=== PATIENT | male | born 1935 | race Caucasian/White ===

== ENCOUNTER 2018-02-24 09:33 | Emergency (ER) | payer OTHER, SELFPAY ==
[2018-02-24 09:34] VITALS: BP 154/75; PULSE 69; RESP 17; TEMP 36.6; O2SAT 97; BMI 21.9
--- NOTE | 2018-02-24 10:11 | ED.VISSUMM ---
- ER Visit Summary Date of Service: 02/24/18 Chief Complaint: [] Right ear plugged dizzy History of Present Illness: The patient is a 82 M [] patient reports that the other day he noticed that his right ear was plugged where he could not hear and since then he developed a sense of dizziness with a buzzing sensation to the right ear symptoms persisted today and he came in he has no fever no cough no runny nose, no headache no change in vision no numbness weakness or paresthesias no neurologic abnormalities the family reports at times his gait seems slightly unsteady and he indicates that because his ear keeps passing, he has no history of AR or stroke his diabetes is well-controlled with blood sugars running around 100, he indicates he has been feeling fine his review of systems otherwise negative Physical Examination: [] 154/56, General, no distress resting comfortably HEENT is generally unremarkable but he does have a wax impaction to the right ear the TM is partially seen and appears intact, the left ear TM is unremarkable and canal he has no nystagmus his speech is clear and easy to understand cranial nerves are normal The neck is supple no adenopathy Cardiovascular, regular rate and rhythm Lungs, clear bilateral Abdomen, soft nontender Extremities, no clubbing cyanosis or edema Neurologic, awake alert answering questions appropriately moving all 4 extremities no cerebellar findings his gait is steady and strong here he indicates he feels fine his NIH is 0 Test Results: [] Emergency Department Course and Treatment: [] Long conversation with the patient his family I explained given his age and his diabetes that he could have a wax impaction and some other occult condition causing the spinning sensation or dizziness recommended screening labs EKG head CT etc. but he declined that saying he simply wanted that wax removed from his ear his [id number] was in the room with him he clearly understood all of the above concerns that I had verbalized them back to me, he did not wish to have an ED evaluation, we did irrigate his ear took out the wax he is feeling fine he wants to go home to follow-up with his doctors he will be given Tobrex ear solution and he will follow-up and return for change in symptoms Treatment Plan: [] Disposition: [] Home stable Impression: [] Right sided cerumen impaction This note was generated with [employer] software. It may contain incorrect words, spelling, and punctuation that were not noted in review of the chart prior to signing ED Disposition - Plan for ED Patient: Chief Complaint: Dizziness Referrals: Hao Marie MD [Primary Care Provider] -
--- NOTE | 2018-02-24 10:14 | ED.DCSUM_ITS ---
- ER Visit Summary Date of Service: 02/24/18 Chief Complaint: [] Right ear plugged dizzy History of Present Illness: The patient is a 82 M [] patient reports that the other day he noticed that his right ear was plugged where he could not hear and since then he developed a sense of dizziness with a buzzing sensation to the right ear symptoms persisted today and he came in he has no fever no cough no runny nose, no headache no change in vision no numbness weakness or paresthesias no neurologic abnormalities the family reports at times his gait seems slightly unsteady and he indicates that because his ear keeps passing, he has no history of NC or stroke his diabetes is well-controlled with blood sugars running around 100, he indicates he has been feeling fine his review of systems otherwise negative Physical Examination: [] 154/56, General, no distress resting comfortably HEENT is generally unremarkable but he does have a wax impaction to the right ear the TM is partially seen and appears intact, the left ear TM is unremarkable and canal he has no nystagmus his speech is clear and easy to understand cranial nerves are normal The neck is supple no adenopathy Cardiovascular, regular rate and rhythm Lungs, clear bilateral Abdomen, soft nontender Extremities, no clubbing cyanosis or edema Neurologic, awake alert answering questions appropriately moving all 4 extremities no cerebellar findings his gait is steady and strong here he indicates he feels fine his NIH is 0 Test Results: [] Emergency Department Course and Treatment: [] Long conversation with the patient his family I explained given his age and his diabetes that he could have a wax impaction and some other occult condition causing the spinning sensation or dizziness recommended screening labs EKG head CT etc. but he declined that saying he simply wanted that wax removed from his ear his [id number] was in the room with him he clearly understood all of the above concerns that I had verbalized them back to me, he did not wish to have an ED evaluation, we did irrigate his ear took out the wax he is feeling fine he wants to go home to follow-up with his doctors he will be given Tobrex ear solution and he will follow-up and return for change in symptoms Treatment Plan: [] Disposition: [] Home stable Impression: [] Right sided cerumen impaction This note was generated with [employer] software. It may contain incorrect words, spelling, and punctuation that were not noted in review of the chart prior to signing ED Disposition - Plan for ED Patient: Chief Complaint: Dizziness Referrals: Hao Marie MD [Primary Care Provider] -
--- NOTE | 2018-02-24 10:14 | ED.DEP ---
ED Disposition - Plan for ED Patient: Chief Complaint: Dizziness Instructions: ED Dizziness [facility], ED Cerumen Impaction, Home Care, ED Earwax Removal Prescriptions: Carbamide Peroxide [Ear Wax Removal] 15 ml OT 4X/DAY #1 drops Referrals: Hao Marie MD [Primary Care Provider] -
== END 2018-02-24 10:36 | disposition home or self-care (01) ==
LOC: ED 10:20
PROVIDERS: Emergency Provider Emergency Medicine; Family Provider Internal Medicine; PCP Internal Medicine
DX: H61.21 Impacted cerumen, right ear (principal); I10 Essential (primary) hypertension; E11.9 Type 2 diabetes mellitus without complications; Z79.84 Long term (current) use of oral hypoglycemic drugs; Z79.899 Other long term (current) drug therapy
CPT/HCPCS: 69209; 99283

== ENCOUNTER → 2018-03-21 06:50 | Outpatient (CLI) | payer MEDICARE, SELFPAY ==
[2018-02-24 09:34] VITALS: BMI 21.9
--- NOTE | 2018-03-21 07:01 | MRI_ITS ---
STUDY: MRI BRAIN WITH AND WITHOUT CONTRAST (ATTENTION INTERNAL AUDITORY CANALS - I.A.C.'s) REASON FOR EXAM: Male, 82 years old. Sudden right hearing loss TECHNIQUE: Standardized multiplanar fat and water weighted pulse sequences were obtained. 7 ml of Gadavist contrast material was administered intravenously for the contrast portion of the examination. COMPARISON: None. FINDINGS: Normal bilateral temporal bones. Normal bilateral internal auditory canals. There is no demonstrated intracanalicular or cisternal vestibular schwannoma (acoustic neuroma). There is no enhancement of the bilateral VIIth or VIIIth cranial nerves. Normal bilateral cochlea, vestibules and semicircular canals. Normal size of the ventricles and extra-axial spaces for the patient's age. Normal white matter tracts of the supratentorial brain. Normal bilateral basal ganglia. Normal thalami. Normal flow voids within the major intracranial circulation suggesting patency by spin echo criteria. Normal venous enhancement. There is no enhancing intra-axial or extra-axial abnormality. There is no extra-axial fluid accumulation. Normal sella turcica, pituitary gland, infundibular stalk, optic chiasm and hypothalamus. Normal tectal plate and pineal gland. Normal midbrain, edie and medulla. Normal cerebellum. Normal basal cisterns. No demonstrated orbital abnormality, within the constraints of a routine brain study. Normal visualized paranasal sinuses. Normal calvarium and skull base. Normal visualized soft tissue structures. Normal visualized upper cervical spine. MRI/Brain W/WO Contrast IMPRESSION: Normal unenhanced and enhanced MRI of the bilateral internal auditory canals (I.A.C's). Electronically Signed: Campbell Márquez MD at 11:33 EST Tel , Service support ,
[2018-03-21 07:45] LABS: CREATININE FINGERSTICK 1.2 mg/dL (0.70-1.30); EGFR FINGERSTICK > 60.0000 mL/min (>60)
--- OUTSIDE RECORDS SUMMARY | 2018-06-22 16:41 | XMS RPT_ITS ---
:1935 Author Organization OHIP Care Team Providers Name Role Phone Hao Montes Primary Care Unavailable Carmela Spicer Attending Unavailable Marcos Amezcua Attending Unavailable Marcos Amezcua Referring Unavailable Hao Montes Primary Care Unavailable HAO MONTES Referring Unavailable HAO MONTES Attending Unavailable HAO MONTES Referring Unavailable HAO MONTES Referring Unavailable HAO MONTES Referring Unavailable HAO MONTES Attending Unavailable HAO MONTES Referring Unavailable PROBLEMS PROBLEMS DATE TYPE CONDITION / CODE ATTENDING STATUS SOURCE 07/06/2017 Active Encounter for NA Active [facility] general adult [place] medical examination Repository without abnormal findings / Z00.00(ICD-10) 04/03/2015 Active Essential (primary) NA Active [facility] hypertension / [place] I10(ICD-10) Repository 06/29/2017 Active Type 2 diabetes NA Active [facility] mellitus without [place] complications / Repository E11.9(ICD-10) PROCEDURES PROCEDURES No Procedure Records FoundRESULTS RESULTS CREATININE FINGERSTICK Collected: 03/21/2018 Status: F Source: [place] 7:33 AM [facility] REPOSITORY TYPE CODE TESTS RESULT OUT OF RANGE REFERENCE UNITS LAB L9100.0210 0.70-1.30 mg/dL Normal CREATININE WB 1.2 LAB L9100.0220 >60 mL/min EGFR WB Normal > 60.0000 Performed By: #### L9100.0200 #### [facility] Point [facility] Care [facility] [place] [address] BRAIN W/WO CONTRAST Observed: 03/21/2018 Status: F Source: [place] 7:01 AM [facility] REPOSITORY [facility] Imaging Services [address] [place] [address] Brain W/WO Contrast MR#: [id number] Acct: [id number] Name: BABAR HUNT Rep #: [id number] : 1935 M 82 From: Campbell Márquez MD PCP: Hao Montes MD Status: REG CLI Study: Brain W/WO Contrast Date of Exam: 03/21/18 Exam# [id number] Ordering Dr: Marcos Amezcua MD STUDY: MRI BRAIN WITH AND WITHOUT CONTRAST (ATTENTION INTERNAL AUDITORY CANALS - I.A.C.'s) REASON FOR EXAM: Male, 82 years old. Sudden right hearing loss TECHNIQUE: Standardized multiplanar fat and water weighted pulse sequences were obtained. 7 ml of Gadavist contrast material was administered intravenously for the contrast portion of the examination. COMPARISON: None. FINDINGS: Normal bilateral temporal bones. Normal bilateral internal auditory canals. There is no demonstrated intracanalicular or cisternal vestibular schwannoma (acoustic neuroma). There is no enhancement of the bilateral VIIth or VIIIth cranial nerves. Normal bilateral cochlea, vestibules and semicircular canals. Normal size of the ventricles and extra-axial spaces for the patient's age. Normal white matter tracts of the supratentorial brain. Normal bilateral basal ganglia. Normal thalami. Normal flow voids within the major intracranial circulation suggesting patency by spin echo criteria. Normal venous enhancement. There is no enhancing intra-axial or extra-axial abnormality. There is no extra-axial fluid accumulation. Normal sella turcica, pituitary gland, infundibular stalk, optic chiasm and hypothalamus. Normal tectal plate and pineal gland. Normal midbrain, edie and medulla. Normal cerebellum. Normal basal cisterns. No demonstrated orbital abnormality, within the constraints of a routine brain study. Normal visualized paranasal sinuses. Normal calvarium and skull base. Normal visualized soft tissue structures. Normal visualized upper cervical spine. MRI/Brain W/WO Contrast IMPRESSION: Normal unenhanced and enhanced MRI of the bilateral internal auditory canals (I.A.C's). Electronically Signed: Campbell Márquez MD at 11:33 EST Tel , Service support , CC: Marcos Amezcua MD; Hao Montes MD [place] Estimator: Signed EMERGENCY DEPARTMENT Observed: 02/24/2018 Status: F Source: RAY SUMMARY 3:06 PM [facility] REPOSITORY [facility] Medical Records Department [address] [place] [address] Emergency Department Summary 02/24/18 1011 MR#: [id number] Acct: [id number] Name: BABAR HUNT Rep #: [id number] : 1935 82 From: Carmela Spicer MD PCP: Hao Montes MD Status: DEP ER - ER Visit Summary Date of Service: 02/24/18 Chief Complaint: [] Right ear plugged dizzy History of Present Illness: The patient is a 82 M [] patient reports that the other day he noticed that his right ear was plugged where he could not hear and since then he developed a sense of dizziness with a buzzing sensation to the right ear symptoms persisted today and he came in he has no fever no cough no runny nose, no headache no change in vision no numbness weakness or paresthesias no neurologic abnormalities the family reports at times his gait seems slightly unsteady and he indicates that because his ear keeps passing, he has no history of MA or stroke his diabetes is well-controlled with blood sugars running around 100, he indicates he has been feeling fine his review of systems otherwise negative Physical Examination: [] 154/56, General, no distress resting comfortably HEENT is generally unremarkable but he does have a wax impaction to the right ear the TM is partially seen and appears intact, the left ear TM is unremarkable and canal he has no nystagmus his speech is clear and easy to understand cranial nerves are normal The neck is supple no adenopathy Cardiovascular, regular rate and rhythm Lungs, clear bilateral Abdomen, soft nontender Extremities, no clubbing cyanosis or edema Neurologic, awake alert answering questions appropriately moving all 4 extremities no cerebellar findings his gait is steady and strong here he indicates he feels fine his NIH is 0 Test Results: [] Emergency Department Course and Treatment: [] Long conversation with the patient his family I explained given his age and his diabetes that he could have a wax impaction and some other occult condition causing the spinning sensation or dizziness recommended screening labs EKG head CT etc. but he declined that saying he simply wanted that wax removed from his ear his [id number] was in the room with him he clearly understood all of the above concerns that I had verbalized them back to me, he did not wish to have an ED evaluation, we did irrigate his ear took out the wax he is feeling fine he wants to go home to follow-up with his doctors he will be given Tobrex ear solution and he will follow-up and return for change in symptoms Treatment Plan: [] Disposition: [] Home stable Impression: [] Right sided cerumen impaction This note was generated with Hiper[employer] dictation software. It may contain incorrect words, spelling, and punctuation that were not noted in review of the chart prior to signing ED Disposition - Plan for ED Patient: Chief Complaint: Dizziness Referrals: Hao Montes MD [Primary Care Provider] - What to do if you have Problems For any increased pain, shortness of breath, bleeding, nausea or vomiting, chest pain, or any unexpected problems, contact your Primary Care Provider. Call [facility] ([phone]) or report to the closest Emergency Room. Call 911 if necessary. 02/24/18 1506 <Electronically signed by Carmela Spicer MD> Date Carmela Spicer MD Cosigner Signature (If Indicated): Date CC: Hao Montes MD DISCHARGE INSTRUCTION Observed: 02/24/2018 Status: F Source: [place] 10:16 AM [facility] REPOSITORY [facility] Medical Records Department [address] [place] [address] Discharge Instruction 02/24/18 1014 MR#: [id number] Acct: [id number] Name: BABAR HUNT Rep #: [id number] : 1935 82 From: Carmela Spicer MD PCP: Hao Montes MD Status: PRE ER ED Disposition - Plan for ED Patient: Chief Complaint: Dizziness Instructions: ED Dizziness UKO, ED Cerumen Impaction, Home Care, ED Earwax Removal Prescriptions: Carbamide Peroxide [Ear Wax Removal] 15 ml OT 4X/DAY #1 drops Referrals: Hao Montes MD [Primary Care Provider] - What to do if you have Problems For any increased pain, shortness of breath, bleeding, nausea or vomiting, chest pain, or any unexpected problems, contact your Primary Care Provider. Call [facility] ([phone]) or report to the closest Emergency Room. Call 911 if necessary. 02/24/18 1016 <Electronically signed by Carmela Spicer MD> Date Carmela Spicer MD Cosigner Signature (If Indicated): Date CC: Hao Montes MD CNPN Observed: 01/27/2018 Status: COMPLETED Source: JJ 12:00 AM [facility] REPOSITORY Telephone (INTMWS) BABAR HUNT ([id number]) 1935 M Date Time Provider Department 01/27/18 HAO MONTES During your visit today, we recorded the following information about you: Kayla Nicolette Psr 01/27/2018 4:28 PM Signed Patient has been identified by name and date of : Yes Pending Prescriptions Disp Refills METFORMIN ER 500 MG TABLET,EXTENDED RELEASE 24 HR Sig: Take 1 tablet by mouth twice daily before meals. ARIN: No RX INSTRUCTIONS: Patient aware RX will be sent to pharmacy. No need to notify patient. Kayla Nicolette Psr Esperanza Dorman RN 01/28/2018 8:06 AM Signed Patient has been identified by name and date of : Yes Patient phones for refill(s): Pending Prescriptions Disp Refills METFORMIN ER 500 MG TABLET,EXTENDED RELEASE 24 HR 180 tablet 3 Sig: Take 1 tablet by mouth twice daily before meals. ARIN: No Date of last office visit in primary care: 01/04/18, future appt. 07/08/18 Last 2 Encounter Wt Readings: Date: Wt: 01/04/2018 64.8 kg (142 lb 12.8 oz) 07/06/2017 64.9 kg (143 lb) Previous labs/tests for medication: Diabetes: Hemoglobin A1C (%) Date Value 12/28/2017 7.0 06/29/2017 7.2 Please advise. Thank you. Esperanza Dorman RN Yael Tovar Psr 02/03/2018 11:52 AM Signed Patient is calling stating that he went to [facility] and [facility] has not received a prescription for the Metformin. This was requested on 2017. Please forward to [facility]. Allergies As of Date: 01/27/2018 (No Known Allergies) Date Reviewed: 01/04/2018 Reviewed by: Karlee Mendieta LPN - Fully Assessed Reason for Visit: Refill Request [94] Order(s):metFORMIN ER (GLUCOPHAGE XR) 500 mg 24 hr tabletTake 1 tablet by mouth twice daily before meals.Disp: 180 tabletRfl: 3 Prescriptions as of 01/27/2018 Sig: METFORMIN ER 500 MG TABLET,EX* Take 1 tablet by mouth twice * LISINOPRIL 20 MG-HYDROCHLOROT* Take 2 tablets by mouth once * COMPOUNDED PRESCRIPTION 1 application once daily. Sun* BLOOD SUGAR DIAGNOSTIC STRIPS Use as instructed. Test once * Problem List As Of Date 01/27/2018 Noted Resolved ROSACEA/ PERIORAL DERMATITIS [L71.9] INVALID FOR* Essential hypertension [I10] INVALID FOR* Type 2 diabetes mellitus without complication (*INVALID FOR* More... Non-alcoholic fatty liver disease [K76.0] INVALID FOR* Prescriptions ordered this encounter Disp Refills Start End METFORMIN ER 500 MG TABLET,EXTENDED * 180 * 3 01/29/2018 Route: ORAL Sig: Take 1 tablet by mouth twice daily before meals. Medications Discontinued During This Encounter metFORMIN ER (GLUCOPHAGE XR) 500 mg * 01/04/2018 01/29/2018 Class: Med Update Route: ORAL Sig: Take 1 tablet by mouth twice daily before meals. Disc: Reason for discontinue is not on file. Encounter Status:Closed by HAO MONTES MD on 01/29/18 PROGRESS Observed: 01/04/2018 Status: COMPLETED Source: [place] 9:41 AM [facility] REPOSITORY O ID: [id number] Author: Hao Montes Service: (none) Author Type: Physician Type: Progress Notes Filed: 01/04/2018 9:44 AM Note Text: This note was created using [employer]ile [employer]. Subjective Babar Hunt is a 82 year old male here for follow up. He was having mild diarrhea from metformin often so he cut back to 1 tablet BID one month ago. His glucose readings were about the same and he preferred to try and manage more with diet. 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 ACTIVE PROBLEM LIST ROSACEA/ PERIORAL DERMATITIS Essential Hypertension Type 2 Diabetes Mellitus Without Complication (Hcc) Non-Alcoholic Fatty Liver Disease Current Outpatient Prescriptions: metFORMIN ER (GLUCOPHAGE XR) 500 mg 24 hr tablet Take 1 tablet by mouth twice daily before meals. lisinopril-hydrochlorothiazide (PRINZIDE,ZESTORETIC) 20-12.5 mg per tablet Take 2 tablets by mouth once daily. COMPOUNDED PRESCRIPTION 1 application once daily. Apply small amount Prosacea gel to nose AND cheeks once daily. blood sugar diagnostic (FREESTYLE TEST) test strip Use as instructed. Test once daily 250.00 No current facility-administered medications for this visit. Review of Systems Constitutional: Negative. Respiratory: Negative. Cardiovascular: Negative. Gastrointestinal: Negative. Endocrine: Negative. Objective BP 134/70 (BP Site: Right Arm, BP Position: Sitting, BP Cuff Size: Regular Adult) Pulse 76 Temp (!) 35.6 ?C (96.1 ?F) (Left Tympanic) Resp 16 Wt 64.8 kg (142 lb 12.8 oz) BMI 22.04 kg/m? Physical Exam Constitutional: He appears well-nourished. Eyes: No scleral icterus. Cardiovascular: Normal heart sounds. Pulmonary/Chest: Breath sounds normal. Abdominal: Soft. There is no tenderness. Musculoskeletal: He exhibits no edema. Component Latest Ref Rng AND Units 12/28/2017 Protein, Total 6.3 - 8.0 g/dL 7.0 Albumin 3.9 - 4.9 g/dL 4.4 Calcium 8.5 - 10.2 mg/dL 9.3 Bilirubin, Total 0.2 - 1.3 mg/dL 0.8 Alkaline Phosphatase 36 - 108 U/L 42 AST 14 - 40 U/L 44 (H) Glucose 74 - 99 mg/dL 110 (H) BUN 9 - 24 mg/dL 21 Creatinine 0.73 - 1.22 mg/dL 1.12 Sodium 136 - 144 mmol/L 137 Potassium 3.7 - 5.1 mmol/L 4.1 Chloride 97 - 105 mmol/L 100 CO2 22 - 30 mmol/L 23 Anion Gap 9 - 18 mmol/L 14 ALT 10 - 54 U/L 50 eGFR- >60 eGFR-All Other Races . >60 Cholesterol, Total <200 mg/dL 95 Triglyceride <150 mg/dL 59 HDL Cholesterol >39 mg/dL 51 LDL Cholesterol <100 mg/dL 32 Non HDL Cholesterol <130 mg/dL 44 Fasting Time hrs 12 VLDL Cholesterol <30 mg/dL 12 TC:HDL Ratio <5.10 1.86 LDL:HDL Ratio <2.54 0.63 Hemoglobin A1C 4.3 - 5.6 % 7.0 (H) Estimated Average Glucose mg/dL 154 Assessment and Plan 1. Essential hypertension - ICD9: 401.9, ICD10: I10 (primary diagnosis) - good control - Continue current medication(s) - Goal of BP <130/80 2. Type 2 diabetes mellitus without complication, without long-term current use of insulin (HCC) - ICD9: 250.00, ICD10: E11.9 Controlled. - Continue current medications - BASIC METABOLIC PNL - HGB A1C - ALBUMIN/CREAT RATIO RND UR - LIPID PANEL BASIC Hao Montes MD CNOV Observed: 01/04/2018 Status: COMPLETED Source: [place] 8:20 AM [facility] REPOSITORY Office Visit (INTMWS) BABAR HUNT ([id number]) 1935 M Date Time Provider Department 01/04/18 8:20 AM HAO MONTES INTMWS During your visit today, we recorded the following information about you: Temperature Pulse Respiration Blood pressure 96.1 degrees 76/minute 16/minute 134/70 Weight 64.8 kg Hao Montes MD 01/04/2018 9:44 AM Signed This note was created using [employer]. Subjective Babar Hunt is a 82 year old male here for follow up. He was having mild diarrhea from metformin often so he cut back to 1 tablet BID one month ago. His glucose readings were about the same and he preferred to try and manage more with diet. 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 ACTIVE PROBLEM LIST ROSACEA/ PERIORAL DERMATITIS Essential Hypertension Type 2 Diabetes Mellitus Without Complication (Hcc) Non-Alcoholic Fatty Liver Disease Current Outpatient Prescriptions: metFORMIN ER (GLUCOPHAGE XR) 500 mg 24 hr tablet Take 1 tablet by mouth twice daily before meals. lisinopril-hydrochlorothiazide (PRINZIDE,ZESTORETIC) 20-12.5 mg per tablet Take 2 tablets by mouth once daily. COMPOUNDED PRESCRIPTION 1 application once daily. Apply small amount Prosacea gel to nose AND cheeks once daily. blood sugar diagnostic (FREESTYLE TEST) test strip Use as instructed. Test once daily 250.00 No current facility-administered medications for this visit. Review of Systems Constitutional: Negative. Respiratory: Negative. Cardiovascular: Negative. Gastrointestinal: Negative. Endocrine: Negative. Objective BP 134/70 (BP Site: Right Arm, BP Position: Sitting, BP Cuff Size: Regular Adult) Pulse 76 Temp (!) 35.6 ?C (96.1 ?F) (Left Tympanic) Resp 16 Wt 64.8 kg (142 lb 12.8 oz) BMI 22.04 kg/m? Physical Exam Constitutional: He appears well-nourished. Eyes: No scleral icterus. Cardiovascular: Normal heart sounds. Pulmonary/Chest: Breath sounds normal. Abdominal: Soft. There is no tenderness. Musculoskeletal: He exhibits no edema. Component Latest Ref Rng AND Units 12/28/2017 Protein, Total 6.3 - 8.0 g/dL 7.0 Albumin 3.9 - 4.9 g/dL 4.4 Calcium 8.5 - 10.2 mg/dL 9.3 Bilirubin, Total 0.2 - 1.3 mg/dL 0.8 Alkaline Phosphatase 36 - 108 U/L 42 AST 14 - 40 U/L 44 (H) Glucose 74 - 99 mg/dL 110 (H) BUN 9 - 24 mg/dL 21 Creatinine 0.73 - 1.22 mg/dL 1.12 Sodium 136 - 144 mmol/L 137 Potassium 3.7 - 5.1 mmol/L 4.1 Chloride 97 - 105 mmol/L 100 CO2 22 - 30 mmol/L 23 Anion Gap 9 - 18 mmol/L 14 ALT 10 - 54 U/L 50 eGFR- >60 eGFR-All Other Races . >60 Cholesterol, Total <200 mg/dL 95 Triglyceride <150 mg/dL 59 HDL Cholesterol >39 mg/dL 51 LDL Cholesterol <100 mg/dL 32 Non HDL Cholesterol <130 mg/dL 44 Fasting Time hrs 12 VLDL Cholesterol <30 mg/dL 12 TC:HDL Ratio <5.10 1.86 LDL:HDL Ratio <2.54 0.63 Hemoglobin A1C 4.3 - 5.6 % 7.0 (H) Estimated Average Glucose mg/dL 154 Assessment and Plan 1. Essential hypertension - ICD9: 401.9, ICD10: I10 (primary diagnosis) - good control - Continue current medication(s) - Goal of BP <130/80 2. Type 2 diabetes mellitus without complication, without long-term current use of insulin (HCC) - ICD9: 250.00, ICD10: E11.9 Controlled. - Continue current medications - BASIC METABOLIC PNL - HGB A1C - ALBUMIN/CREAT RATIO RND UR - LIPID PANEL BASIC Hao Montes MD Referring Provider: HAO MONTES [[id number]] Allergies As of Date: 01/04/2018 (No Known Allergies) Date Reviewed: 01/04/2018 Reviewed by: Karlee Mendieta LPN - Fully Assessed Reason for Visit: F/U 6 Month [444] Primary Visit Diagnosis:Essential hypertension [I10] Other Visit Diagnosis:Type 2 diabetes mellitus without complication, without long-term current use of insulin (HCC) [E11.9] Order(s):metFORMIN ER (GLUCOPHAGE XR) 500 mg 24 hr tabletTake 1 tablet by mouth twice daily before meals.Disp: Rfl: BASIC METABOLIC PNL [SQBMP] Order #: [id number] FUTURE HGB A1C [WXCGT3T] Order #: [id number] FUTURE ALBUMIN/CREAT RATIO RND UR [SQUACR] Order #: [id number] FUTURE LIPID PANEL BASIC [SQLIPB] Order #: [id number] FUTURE Prescriptions as of 01/04/2018 Sig: METFORMIN ER 500 MG TABLET,EX* Take 1 tablet by mouth twice * LISINOPRIL 20 MG-HYDROCHLOROT* Take 2 tablets by mouth once * COMPOUNDED PRESCRIPTION 1 application once daily. Sun* BLOOD SUGAR DIAGNOSTIC STRIPS Use as instructed. Test once * Problem List As Of Date 01/04/2018 Noted Resolved ROSACEA/ PERIORAL DERMATITIS [L71.9] INVALID FOR* Essential hypertension [I10] INVALID FOR* Type 2 diabetes mellitus without complication (*INVALID FOR* More... Non-alcoholic fatty liver disease [K76.0] INVALID FOR* Prescriptions ordered this encounter Disp Refills Start End METFORMIN ER 500 MG TABLET,EXTENDED * 01/04/2018 Class: Med Update Route: ORAL Sig: Take 1 tablet by mouth twice daily before meals. Medications Discontinued During This Encounter metFORMIN ER (GLUCOPHAGE XR) 500 mg * 120 * 5 04/15/2017 01/04/2018 Route: ORAL Sig: Take 2 tablets by mouth twice daily before meals. Patient taking differently: Take 500 mg by mouth twice daily before meals. Disc: Reason for discontinue is not on file. Disposition: Return in about 6 months (around 07/05/2018). Follow-up and Disposition History Recorded Encounter Status:Closed by HAO MONTES MD on 01/04/18 HEMOGLOBIN A1C Collected: 12/28/2017 Status: F Source: [place] 8:15 AM [facility] REPOSITORY TYPE CODE TESTS RESULT OUT OF REFERENCE UNITS RANGE LAB HGBA1C 4.3-5.6 % High Hemoglobin A1c 7.0 LAB HBA0 mg/dL Est. Average Glucose 154 Result Comment: eAG: (Estimated average glucose) is a calculated value from HgbA1c and is accounts receivable representative of the average blood glucose level in the last 2-3 month period. Performed By: #### HBA1C, CMP, LIPB #### [facility] [address] [place] [address] COMP METABOLIC PANEL Collected: 12/28/2017 Status: F Source: [place] 8:15 AM [facility] REPOSITORY TYPE CODE TESTS RESULT OUT OF REFERENCE UNITS RANGE LAB TP 6.3-8.0 g/dL Protein, Total 7.0 LAB ALB 3.9-4.9 g/dL Albumin 4.4 LAB CA 8.5-10.2 mg/dL Calcium, Total 9.3 LAB TBIL 0.2-1.3 mg/dL Bilirubin, Total 0.8 LAB ALKP 36-108 U/L Alkaline Phosphatase 42 LAB AST 14-40 U/L AST High 44 LAB GLU 74-99 mg/dL Glucose High 110 Result Comment: The [place] Diabetes Association (ADA) provides guidance for cutoff values for fasting glucose and random glucose. The ADA defines fasting as no caloric intake for at least 8 hours. Fas ting plasma glucose results between 100 to 125 mg/dL indicate increased risk for diabetes (prediabetes). Fasting plasma glucose results greater than or equal to 126 mg/dL meet the criteria for diagnosis of diabetes. In the absence of unequivocal hyperglycemia, results should be confirmed by repeat testing. In a patient with classic symptoms of hyperglycemia or hyperglycemic crisis, random plasma glucose results greater than or equal to 200 mg/dL meet the criteria for diagnosis of diabetes. Reference: Standards of Medical Care in Diabetes 2016, [place] [employer] Association. Diabetes Care. 2016.39(Suppl 1). LAB BUN 9-24 mg/dL BUN 21 LAB CRET 0.73-1.22 mg/dL Creatinine 1.12 LAB NA 136-144 mmol/L Sodium 137 LAB K 3.7-5.1 mmol/L Potassium 4.1 LAB CL 97-105 mmol/L Chloride 100 LAB CO2 22-30 mmol/L CO2 23 LAB AGAP 9-18 mmol/L Anion Gap 14 LAB ALT 10-54 U/L ALT 50 LAB GFRAA eGFR- Amer. >60 LAB GFRNAA . eGFR-All Other Races >60 Result Comment: eGFR (Estimated GFR) Units of measure: mL/min/1.73 meters squared eGFR is derived from the reexpressed MDRD Study equation using the following parameters: serum creatinine, age, gender and race. The creatinine assay has been calibrated to be traceable to IDMS. An eGFR <60 mL/min/1.73m2 for >3 months is consistent with chronic kidney disease. Refer to KDOQI guidelines for clinical interpretation. In patients with unstable renal function, e.g. those with acute kidney injury, the eGFR may not accurately reflect actual GFR. Performed By: #### HBA1C, CMP, LIPB #### [facility] [address] [place] [id number] LIPID PANEL, BASIC Collected: 12/28/2017 Status: F Source: [place] 8:15 AM [facility] REPOSITORY TYPE CODE TESTS RESULT OUT OF REFERENCE UNITS RANGE LAB CHOL <200 mg/dL Cholesterol 95 Result Comment: <200 mg/dL, Desirable 200-239 mg/dL, Borderline high >239 mg/dL, High LAB TRIGLY <150 mg/dL Triglyceride 59 Result Comment: <150 mg/dL, Normal 150-199 mg/dL, Borderline high 200-499 mg/dL, High >499 mg/dL, Very high LAB HDL >39 mg/dL HDL-Cholesterol 51 Result Comment: 40-59 mg/dL, Acceptable >59 mg/dL, High: Negative risk factor for coronary heart disease <40 mg/dL, Low: Positive risk factor for coronary heart disease LAB LDL <100 mg/dL LDL-Cholesterol 32 Result Comment: <100 mg/dL, Optimal 100-129 mg/dL, Near optimal/above optimal 130-159 mg/dL, Borderline high 160-189 mg/dL, High >189 mg/dL, Very high Secondary prevention optimal LDL Cholesterol levels are recommended to be < 70 mg/dL LAB NONHDL <130 mg/dL Non HDL Cholesterol 44 Result Comment: <130 mg/dL, Optimal 130-159 mg/dL, Near optimal/above optimal 160-189 mg/dL, Borderline high 190-219 mg/dL, High >219 mg/dL, Very high Secondary prevention optimal non HDL Cholesterol levels are recommended to be < 100 mg/dL LAB FT hrs Fasting Time 12 LAB VLDL <30 mg/dL VLDL Cholesterol 12 LAB TCHDL <5.10 TC:HDL Ratio 1.86 LAB LDLHDL <2.54 LDL:HDL Ratio 0.63 Result Comment: Reference: 1. National Cholesterol Education Program ATP III Guideline At-A-Glance Quick Desk Reference: National Heart, Lung, and Blood [place]. National Institutes of Health. 2001: NIH Publication No. 01-3305. 2. An International Atherosclerosis Society position paper: global recommendations for the management of dyslipidemia: executive summary, Atherosclerosis. 2014: 232(2):410-413. Performed By: #### HBA1C, CMP, LIPB #### [facility] [address] [address] PROGRESS Observed: 07/06/2017 Status: COMPLETED Source: [place] 2:05 PM [facility] REPOSIT[facility] O ID: [id number] Author: Hao Montes Service: (none) Author Type: Physician Type: Progress Notes Filed: 07/06/2017 10:39 PM Note Text: This note was created using [employer]. Subjective Babar Hunt is a 81 year old male here for an annual physical. He had a vague illness during winter with malaise, fatigue, anorexia, and weight loss. He recovered after a few weeks. His diabetes mellitus was elevating. Hypertension was controlled. He stopped doxycycline and was applying an over the counter topical cream called Prosacea. 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 Volunteers 1/2 day 5 times a week. ALLERGIES No Known Allergies Current Outpatient Prescriptions: COMPOUNDED PRESCRIPTION 1 application once daily. Apply small amount Prosacea gel to nose AND cheeks once daily. lisinopril-hydrochlorothiazide (PRINZIDE,ZESTORETIC) 20-12.5 mg per tablet Take 2 tablets by mouth once daily. metFORMIN ER (GLUCOPHAGE XR) 500 mg 24 hr tablet Take 2 tablets by mouth twice daily before meals. blood sugar diagnostic (FREESTYLE TEST) test strip Use as instructed. Test once daily 250.00 No current facility-administered medications for this visit. Review of Systems Constitutional: Negative. HENT: Negative. Eyes: Negative. Respiratory: Negative. Cardiovascular: Negative. Gastrointestinal: Negative. Endocrine: Negative. Genitourinary: Negative. Musculoskeletal: Negative. Skin: Negative. Neurological: Negative. Hematological: Negative. Psychiatric/Behavioral: Negative. Objective BP 134/76 (BP Site: Left Arm, BP Position: Sitting, BP Cuff Size: Regular Adult) Pulse 80 Temp 36.1 ?C (97 ?F) (Left Tympanic) Resp 18 Ht 171.5 cm (5' 7.5) Wt 64.9 kg (143 lb) BMI 22.07 kg/m2 Physical Exam Constitutional: No distress. HENT: Head: Normocephalic. Nose: Nose normal. Mouth/Throat: Oropharynx is clear and moist. Eyes: Conjunctivae and EOM are normal. Pupils are equal, round, and reactive to light. Neck: No JVD present. Carotid bruit is not present. No tracheal deviation present. Cardiovascular: Normal heart sounds. Exam reveals no gallop. No murmur heard. Pulmonary/Chest: Breath sounds normal. He has no wheezes. He has no rales. Abdominal: Soft. Bowel sounds are normal. He exhibits no mass. There is no tenderness. No hernia. Musculoskeletal: Normal range of motion. He exhibits no edema, tenderness or deformity. Lymphadenopathy: He has no cervical adenopathy. Neurological: He is alert. He exhibits normal muscle tone. Coordination normal. Skin: Skin is warm and dry. No rash noted. Feet: Shoes and socks removed, No deformities, ulcers, calluses, trace DP distal pulses and sensitive to 10 gm monofilament Hemoglobin A1C (%) Date Value 06/29/2017 7.2 08/04/2016 6.5 ) CMP: Glucose 119 06/29/2017 BUN 27 06/29/2017 Creatinine 1.13 06/29/2017 Sodium 138 06/29/2017 Potassium 4.4 06/29/2017 Chloride 100 06/29/2017 CO2 23 06/29/2017 EKG RESULTS: normal sinus rhythm, RBBB, no change from previous. Assessment and Plan ASSESSMENT/PLAN: 1. Routine medical exam - ICD9: V70.0, ICD10: Z00.00 (primary diagnosis) - Recommended regular aerobic exercise. - ECG COMPLETE W INTERPRETATION 2. Essential hypertension - ICD9: 401.9, ICD10: I10 - good control - ECG COMPLETE W INTERPRETATION 3. Type 2 diabetes mellitus without complication, without long-term current use of insulin (HCC) - ICD9: 250.00, ICD10: E11.9 worsening control - Continue current medications - Focus on diet. - COMP METABOLIC PANEL - HGB A1C - LIPID PANEL BASIC 4. Non-alcoholic fatty liver disease - ICD9: 571.8, ICD10: K76.0 Stable. Hao Montes MD CNOV Observed: 07/06/2017 Status: COMPLETED Source: [place] 1:20 PM [facility] Office Visit (INTMWS) BABAR HUNT ([id number]) 1935 M Date Time Provider Department 07/06/17 1:20 PM HAO MONTES INTAcaciaWS During your visit today, we recorded the following information about you: Temperature Pulse Respiration Blood pressure 97 degrees 80/minute 18/minute 134/76 Weight Height 64.9 kg 1.715 m Hao Montes MD 07/06/2017 10:39 PM Signed This note was created using NoteWriter. Subjective Babar Hunt is a 81 year old male here for an annual physical. He had a vague illness during winter with malaise, fatigue, anorexia, and weight loss. He recovered after a few weeks. His diabetes mellitus was elevating. Hypertension was controlled. He stopped doxycycline and was applying an over the counter topical cream called Prosacea. 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 Volunteers 1/2 day 5 times a week. ALLERGIES No Known Allergies Current Outpatient Prescriptions: COMPOUNDED PRESCRIPTION 1 application once daily. Apply small amount Prosacea gel to nose ANDamp; cheeks once daily. lisinopril-hydrochlorothiazide (PRINZIDE,ZESTORETIC) 20-12.5 mg per tablet Take 2 tablets by mouth once daily. metFORMIN ER (GLUCOPHAGE XR) 500 mg 24 hr tablet Take 2 tablets by mouth twice daily before meals. blood sugar diagnostic (FREESTYLE TEST) test strip Use as instructed. Test once daily 250.00 No current facility-administered medications for this visit. Review of Systems Constitutional: Negative. HENT: Negative. Eyes: Negative. Respiratory: Negative. Cardiovascular: Negative. Gastrointestinal: Negative. Endocrine: Negative. Genitourinary: Negative. Musculoskeletal: Negative. Skin: Negative. Neurological: Negative. Hematological: Negative. Psychiatric/Behavioral: Negative. Objective BP 134/76 (BP Site: Left Arm, BP Position: Sitting, BP Cuff Size: Regular Adult) Pulse 80 Temp 36.1 ?C (97 ?F) (Left Tympanic) Resp 18 Ht 171.5 cm (5' 7.5ANDquot;) Wt 64.9 kg (143 lb) BMI 22.07 kg/m2 Physical Exam Constitutional: No distress. HENT: Head: Normocephalic. Nose: Nose normal. Mouth/Throat: Oropharynx is clear and moist. Eyes: Conjunctivae and EOM are normal. Pupils are equal, round, and reactive to light. Neck: No JVD present. Carotid bruit is not present. No tracheal deviation present. Cardiovascular: Normal heart sounds. Exam reveals no gallop. No murmur heard. Pulmonary/Chest: Breath sounds normal. He has no wheezes. He has no rales. Abdominal: Soft. Bowel sounds are normal. He exhibits no mass. There is no tenderness. No hernia. Musculoskeletal: Normal range of motion. He exhibits no edema, tenderness or deformity. Lymphadenopathy: He has no cervical adenopathy. Neurological: He is alert. He exhibits normal muscle tone. Coordination normal. Skin: Skin is warm and dry. No rash noted. Feet: Shoes and socks removed, No deformities, ulcers, calluses, trace DP distal pulses and sensitive to 10 gm monofilament Hemoglobin A1C (%) Date Value 06/29/2017 7.2 08/04/2016 6.5 ) CMP: Glucose 119 06/29/2017 BUN 27 06/29/2017 Creatinine 1.13 06/29/2017 Sodium 138 06/29/2017 Potassium 4.4 06/29/2017 Chloride 100 06/29/2017 CO2 23 06/29/2017 EKG RESULTS: normal sinus rhythm, RBBB, no change from previous. Assessment and Plan ASSESSMENT/PLAN: 1. Routine medical exam - ICD9: V70.0, ICD10: Z00.00 (primary diagnosis) - Recommended regular aerobic exercise. - ECG COMPLETE W INTERPRETATION 2. Essential hypertension - ICD9: 401.9, ICD10: I10 - good control - ECG COMPLETE W INTERPRETATION 3. Type 2 diabetes mellitus without complication, without long-term current use of insulin (HCC) - ICD9: 250.00, ICD10: E11.9 worsening control - Continue current medications - Focus on diet. - COMP METABOLIC PANEL - HGB A1C - LIPID PANEL BASIC 4. Non-alcoholic fatty liver disease - ICD9: 571.8, ICD10: K76.0 Stable. Hao Montes MD Referring Provider: HAO MONTES [[id number]] Allergies As of Date: 07/06/2017 (No Known Allergies) Date Reviewed: 07/06/2017 Reviewed by: Karlee Mendieta LPN - Fully Assessed Reason for Visit: Yearly Exam [187] Primary Visit Diagnosis:Routine medical exam [Z00.00] Other Visit Diagnoses:Essential hypertension [I10] Type 2 diabetes mellitus without complication, without long-term current use of insulin (HCC) [E11.9] Non-alcoholic fatty liver disease [K76.0] Order(s):ECG COMPLETE W INTERPRETATION [ECG01] Order #: [id number] FUTURE COMP METABOLIC PANEL [SQCMP] Order #: [id number] FUTURE HGB A1C [GFSQR8K] Order #: [id number] FUTURE LIPID PANEL BASIC [SQLIPB] Order #: [id number] FUTURE Prescriptions as of 07/06/2017 Sig: COMPOUNDED PRESCRIPTION 1 application once daily. Sun* LISINOPRIL 20 MG-HYDROCHLOROT* Take 2 tablets by mouth once * METFORMIN ER 500 MG TABLET,EX* Take 2 tablets by mouth twice* BLOOD SUGAR DIAGNOSTIC STRIPS Use as instructed. Test once * Medication notes this encounter DOXYCYCLINE HYCLATE 100 MG TABLET >> Karlee Mendieta LPN 07/06/2017 1:25 PM >> KARLEE MENDIETA LPN WedJul 06, 2017 1:25 PM Patient not taking, applies OTC Prosacea gel to nose AND cheeks daily. Problem List As Of Date 07/06/2017 Noted Resolved ROSACEA/ PERIORAL DERMATITIS [L71.9] INVALID FOR* Essential hypertension [I10] INVALID FOR* Type 2 diabetes mellitus without complication (*INVALID FOR* More... Non-alcoholic fatty liver disease [K76.0] INVALID FOR* Medications Discontinued During This Encounter doxycycline (VIBRA-TABS) 100 mg tabl* 30 t* 3 04/14/2016 07/06/2017 Route: ORAL Sig: Take 1 tablet by mouth once daily as needed. Take as directed. Disc: Reason for discontinue is not on file. Disposition: Return in about 6 months (around 01/05/2018). Follow-up and Disposition History Recorded Encounter Status:Closed by HAO MONTES MD on 07/06/17 CBC AND DIFFERENTIAL Collected: 06/29/2017 Status: F Source: [place] 8:28 AM [facility] REPOSIT[facility] TYPE CODE TESTS RESULT OUT OF REFERENCE UNITS RANGE LAB WBC 3.70-11.00 k/uL WBC 5.26 LAB RBC 4.20-6.00 m/uL Low RBC 4.10 LAB HGB 13.0-17.0 g/dL Hemoglobin 13.6 LAB HCT 39.0-51.0 % Hematocrit 41.9 LAB MCV 80.0-100.0 fL MCV High 102.2 LAB MCH 26.0-34.0 pG MCH 33.2 LAB MCHC 30.5-36.0 g/dL MCHC 32.5 LAB RDWCV 11.5-15.0 % RDW-CV 13.2 LAB PLTCT 150-400 k/uL Platelet Count 171 LAB MPV 9.0-12.7 fL MPV 11.2 LAB ANEUT % Neut% 47.9 LAB AANEUT 1.45-7.50 k/uL Abs Neut 2.50 LAB ALYMP % Lymph% 42.6 LAB AALYMP 1.00-4.00 k/uL Abs Lymph 2.24 LAB AMONO % Richardson% 7.4 LAB AAMONO <0.87 k/uL Abs Richardson 0.39 LAB AEOS % Eosin% 1.7 LAB AAEOS <0.46 k/uL Abs Eosin 0.09 LAB ABASO % Baso% 0.4 LAB AABASO <0.11 k/uL Abs Baso <0.03 LAB AUNRBC 0 /100 WBC NRBCs 0.0 LAB ABNRBC <0.01 k/uL Absolute nRBC <0.01 LAB DTYP DTYPE Auto Diff Performed By: #### CBCDIF, BMP, HBA1C #### [facility] [address] [address] BASIC METABOLIC PANL Collected: 06/29/2017 Status: F Source: [place] 8:28 AM [facility] TYPE CODE TESTS RESULT OUT OF REFERENCE UNITS RANGE LAB GLU 74-99 mg/dL High Glucose 119 Result Comment: The [place] Diabetes Association (ADA) provides guidance for cutoff values for fasting glucose and random glucose. The ADA defines fasting as no caloric intake for at least 8 hours. Fas ting plasma glucose results between 100 to 125 mg/dL indicate increased risk for diabetes (prediabetes). Fasting plasma glucose results greater than or equal to 126 mg/dL meet the criteria for diagnosis of diabetes. In the absence of unequivocal hyperglycemia, results should be confirmed by repeat testing. In a patient with classic symptoms of hyperglycemia or hyperglycemic crisis, random plasma glucose results greater than or equal to 200 mg/dL meet the criteria for diagnosis of diabetes. Reference: Standards of Medical Care in Diabetes 2016, [place] [employer] Association. Diabetes Care. 2016.39(Suppl 1). LAB BUN 9-24 mg/dL BUN High 27 LAB CRET 0.73-1.22 mg/dL Creatinine 1.13 LAB NA 136-144 mmol/L Sodium 138 LAB K 3.7-5.1 mmol/L Potassium 4.4 LAB CL 97-105 mmol/L Chloride 100 LAB CO2 22-30 mmol/L CO2 23 LAB AGAP 9-18 mmol/L Anion Gap 15 LAB CA 8.5-10.2 mg/dL Calcium, Total 9.4 LAB GFRAA eGFR- Amer. >60 LAB GFRNAA . eGFR-All Other Races >60 Result Comment: eGFR (Estimated GFR) Units of measure: mL/min/1.73 meters squared eGFR is derived from the reexpressed MDRD Study equation using the following parameters: serum creatinine, age, gender and race. The creatinine assay has been calibrated to be traceable to IDMS. An eGFR <60 mL/min/1.73m2 for >3 months is consistent with chronic kidney disease. Refer to KDOQI guidelines for clinical interpretation. In patients with unstable renal function, e.g. those with acute kidney injury, the eGFR may not accurately reflect actual GFR. Performed By: #### CBCDIF, BMP, HBA1C #### [facility] [address] [place], [place] [address] HEMOGLOBIN A1C Collected: 06/29/2017 Status: F Source: [place] 8:28 AM [facility] REPOSITORY TYPE CODE TESTS RESULT OUT OF REFERENCE UNITS RANGE LAB HGBA1C 4.3-5.6 % High Hemoglobin A1c 7.2 LAB HBA0 mg/dL Est. Average Glucose 160 Result Comment: eAG: (Estimated average glucose) is a calculated value from HgbA1c and is accounts receivable representative of the average blood glucose level in the last 2-3 month period. Performed By: #### CBCDIF, BMP, HBA1C #### [facility] [address] [place], [place] [address] ALBUMIN/CREAT RATIO Collected: 06/29/2017 Status: F Source: [place] 8:28 AM [facility] TYPE CODE TESTS RESULT OUT OF REFERENCE UNITS RANGE LAB UCRR 20-300 mg/dL 94.2 Creatinine,Ur ine,Ran LAB UALBR 0.0-23.0 mg/L <12.0 Albumin Urine Random LAB UALBCR 0-30 mg/g Not Albumin/Creat calculated Ratio Performed By: #### UACR #### [facility] [address] [place], [place] [address] CNPN Observed: 06/01/2017 Status: COMPLETED Source: [place] 12:00 AM [facility] Telephone (INTMWS) BABAR HUNT ([id number]) 1935 M Date Time Provider Department 06/01/17 HAO MONTES INTMWS During your visit today, we recorded the following information about you: Kayla Nicolette Psr 06/01/2017 8:31 AM Signed Patient said that he just spoke with someone in Dr. Montes's office on his Metformin. He was told that he has refills left at [facility] in [place]. Patient said that he called them and [facility] said that his current script is . They informed him to call office to get a new script. Thank you. 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 Patient is notified of all information and verbalizes understanding. Daxa Yao Cma Allergies As of Date: 06/01/2017 (No Known Allergies) Date Reviewed: 12/28/2016 Reviewed by: Estelle Houser LPN - Fully Assessed Reason for Visit: Metformin request [Other] Prescriptions as of 06/01/2017 Sig: LISINOPRIL 20 MG-HYDROCHLOROT* Take 2 tablets by mouth once * METFORMIN ER 500 MG TABLET,EX* Take 2 tablets by mouth twice* DOXYCYCLINE HYCLATE 100 MG TA* Take 1 tablet by mouth once d* BLOOD SUGAR DIAGNOSTIC STRIPS Use as instructed. Test once * Problem List As Of Date 06/01/2017 Noted Resolved ROSACEA/ PERIORAL DERMATITIS [L71.9] INVALID FOR* Essential hypertension [I10] INVALID FOR* Type 2 diabetes mellitus without complication (*INVALID FOR* More... Non-alcoholic fatty liver disease [K76.0] INVALID FOR* Encounter Status:Closed by DAXA YAO CMA on 06/01/17 ALLERGIES ALLERGIES DATE TYPE / CODE NAME / CODE REACTION SEVERITY SOURCE 02/24/2018 Drug No Known Unknown [facility] Allergy/416 Allergies/T92546 Hospital 886241(SNOM 0388(RXNORM) Repository ED CT) Drug NO KNOWN [facility] Class/82090 ALLERGIES [place] 1003(SNOMED Repository CT) ENCOUNTERS ENCOUNTERS ADMIT/DISCHARGE ACCOUNT ADMITTING ENCOUNTER LOCATION SOURCE NUMBER CLASS 03/21/2018 [id number] Ambulatory [facility] ing:MRI Repository 02/24/2018/02/25/20 [id number] Emergency [address] ing:ED Repository 01/04/2018/01/06/20 [id number] Ambulatory [address] [place] Repository 12/28/2017/12/29/19 [id number] Ambulatory [address] [place] Repository 07/06/2017/07/07/19 [id number] Ambulatory [address] [place] Repository 07/06/2017/07/08/19 [id number] Ambulatory [address] Repository 06/29/2017/06/30/19 [id number] Ambulatory [address] Repository PAYERS PAYERS ENCOUNTER GUARANTOR PAYER SUBSCRIBER SOURCE 03/21/2018 BABAR Quintero Primary BABAR [address]du[address] [id number] Insurance:DAVION TAVARESOB: [id number]: Repository [address]Hio: [phone] [id number] [phone] (HP) Date:[id number] [address], [place] [address]JR: 03/21/2018 Secondary NOT GIVENUNK Mamie Insurance:SELF PAY [facility] Number: Effective Repository Date:2018-03-14 02/24/2018 BABAR L Primary BABAR L Mamie [id number] Insurance:AULTCAREPol AMAYALDOB: Community APPLE EMMONAK icy Number: [id number] [id number] Repository [address]Ezc: ([phone]) Date:[id number] [phone] () [address] [address]FI: 02/24/2018 Secondary NOT GIVENUNK Mamie Insurance:SELF PAY [facility] Number: Effective Repository Date:2018-02-24
== END ==
PROVIDERS: Family Provider Internal Medicine; PCP Internal Medicine; Referring Provider Otolaryngology Otolaryngology/Facial Plastic Surgery; Visit Provider Otolaryngology Otolaryngology/Facial Plastic Surgery
DX: H91.8X1 Other specified hearing loss, right ear (principal)
CPT/HCPCS: 70553; A9585

== ENCOUNTER 2020-06-12 13:16 | Emergency (ER) | payer MEDICARE, SELFPAY ==
[2020-06-12 13:17] VITALS: BP 149/73; PULSE 120; RESP 18; TEMP 36.6; O2SAT 98; BMI 21.2
--- NOTE | 2020-06-12 13:25 | EKG12_ITS ---
Test Reason : PALPS Blood Pressure : / mmHG Vent. Rate : 110 BPM Atrial Rate : 110 BPM P-R Int : 194 ms QRS Dur : 132 ms QT Int : 330 ms P-R-T Axes : 042 044 012 degrees QTc Int : 446 ms Sinus tachycardia Right bundle branch block Abnormal ECG Confirmed by CORTNEY LEMUS, BANDAR ([id number]), art editor JAMES DE LA FUENTE ([id number]) on 06/17/2020 10:11:50 A M Referred By: DC Confirmed By:MIGUEL BARR MD
[2020-06-12 13:54] LABS: Absolute Lymphocyte Count 3.47 X10^3/uL (0.83-4.51); Absolute Neutrophil Count 6.6 X10^3/uL (2.0-7.7); Basophil# 0.04 X10^3/uL; Basophil% 0.4 % (0-1); Eosinophil# 0.08 X10^3/uL; Eosinophils% 0.7 % (0-5); Hemoglobin 15.4 g/dL (13.0-16.5); Lymphocyte # 3.47 X10^3/ul (4.0); Lymphocyte % 31.4 % (19-41); Mean Corp Hgb Conc 34.2 g/dL (32-36); Mean Corpuscular Hgb 33.1 pg (27.0-32.0); Mean Corpuscular Volume 96.8 fL (80-94); Mean Platelet Vol. 11.2 fl (6.2-12.0); Monocyte# 0.73 X10^3/uL; Monocyte% 6.6 % (0-10); NRBC Flagged by Analyzer 0 % (0-5); Neutrophil # 6.62 X10^3/uL (2.7-7.7); Neutrophil % 59.9 % (47-70); Platelet Count 224 K/mm3 (150-450); RBC Distribution Width CV 12.9 % (11.6-14.6); RBC Distribution Width SD 45.8 fl (35.1-43.9); Red Blood Count 4.65 M/mm3 (4.6-6.2); White Blood Count 11.1 K/mm3 (4.4-11.0)
[2020-06-12 14:14] LABS: Anion Gap 11 (5-15); BUN 25 mg/dL (7-18); BUN/Creat Ratio 17.1 RATIO (10-20); Calcium,Total 9.7 mg/dL (8.5-10.1); Chloride 99 mmol/L (98-107); Creatinine, Serum 1.46 mg/dL (0.70-1.30); EST Glomerular Filtration Rate 49 mL/min (>60); Est Glom Filt Rate - Afr Amer 59 mL/min (>60); Estimated Creatinine Clearance 34.43 ml/min; Glucose 193 mg/dL (74-106); Magnesium 1.6 mg/dL (1.6-2.6); Potassium 3.9 mmol/L (3.5-5.1); Sodium Level 135 mmol/L (136-145); Thyroid Stim Hormone (TSH) 8.29 uIU/mL (0.358-3.74)
[2020-06-12 14:59] VITALS: BP 162/94; PULSE 71; RESP 16; O2SAT 96
[2020-06-12 15:21] VITALS: BP 159/85; PULSE 77; RESP 13; O2SAT 99
--- NOTE | 2020-06-12 15:44 | ED.VIS.GEN ---
History of Present Illness Chief Complaint: Palpitations Informant: Patient Onset: Days - 2 Narrative: Patient presents here with his son for evaluation of feeling abnormal beats when he checks his pulse. He denies any symptoms of racing heart or palpitations in his chest. Denies any lightheaded or dizzy symptoms. Denies chest pains. Denies any recent vomiting or diarrhea. Takes medications for hypertension which is lisinopril. States he does not drink enough water as he normally should. Tried calling his PCP to get into the office however unable to get a call back, therefore had son bring him to the emergency department. Prior similar symptoms: No Past Medical History - Allergies and Home Meds Allergies/Adverse Reactions: Allergies No Known Allergies Allergy (Unverified 06/12/20 13:20) Primary Care Physician: Hao Marie MD [Primary Care Provider] - 3-5 Days Past Medical History: - - Hypertension Smoking Status: Never smoker Review of Systems General: Denies: Chills, Fever, Sweats Eyes: Denies: Visual changes - bilaterally, Diplopia ENT: Denies: Rhinorrhea, Sore throat Cardiovascular: Denies: Chest pain, Palpitations, Heart racing Respiratory: Denies: Dyspnea, Cough, Dyspnea on exertion Gastrointestinal: Denies: Abdominal pain, Nausea, Vomiting, Diarrhea, Melena, Hematochezia Genitourinary: Denies: Dysuria, Hematuria, Frequency Musculoskeletal: Denies: Back pain, Extremity Pain Skin: Denies: Rash, Wounds Neurological: Denies: Headache, Weakness, Numbness Physical Exam Vital Signs/Narrative: Vital Signs Temp Pulse Resp BP Pulse Ox 06/12/20 15:21 77 13 159/85 H 99 06/12/20 14:59 71 16 162/94 H 96 06/12/20 13:17 97.8 F 120 H 18 149/73 H 98 Inital Vital Signs reviewed: Yes General: Well nourished, Well developed, No Acute Distress Head: Normocephalic, Atraumatic Eyes: Perrl, EOMI ENT: Moist mucous membranes, No rhinorrhea Neck: Supple, Nontender Cardiovascular: Regular rate, Regular rhythm, No murmurs, Tachycardia Respiratory: No distress, CTA bilaterally, Chest nontender Abdomen: Soft, Nontender, Nondistended, Normal bowel sounds Back: Nontender, Normal Inspection Extremities: Nontender, No edema Skin: Normal color, No rash Neurological: Alert, Oriented x3, Cranial nerves II-XII grossly intact, Normal Strength, Normal Sensation Psychological: Normal affect, Normal Mood Diagnostic/Tx/Re-eval Abnormal Lab Results 06/12/20 06/12/20 06/12/20 13:30 13:30 14:20 WBC 11.1 H RBC 4.65 Hgb 15.4 Hct 45.0 MCV 96.8 H MCH 33.1 H MCHC 34.2 RDW Std Deviation 45.8 H RDW Coeff of Marcelo 12.9 Plt Count 224 MPV 11.2 Immature Gran % (Auto) 1.000 H Neut % (Auto) 59.9 Lymph % (Auto) 31.4 [place] % (Auto) 6.6 Eos % (Auto) 0.7 Baso % (Auto) 0.4 Absolute Neuts (auto) 6.6 Absolute Lymphs (auto) 3.47 Nucleated RBC % 0 Sodium 135 L Potassium 3.9 Chloride 99 Carbon Dioxide 25.0 Anion Gap 11 BUN 25 H Creatinine 1.46 H Estim Creat Clear Calc 34.43 Est GFR (MDRD) Af Amer 59 L Est GFR (MDRD) Non-Af 49 L BUN/Creatinine Ratio 17.1 Glucose 193 H Calcium 9.7 Magnesium 1.6 TSH 8.29 H Free T4 1.00 - EKG Initial EKG Interpretation: Sinus Rhythm - Sinus tachycardia rate of 110, no ST or T wave changes, right bundle branch block noted, this is new compared to an EKG back in 2006. - Medical Decision Making Patient currently nontoxic clinically stable. He was tachycardic with a new right bundle branch block. Check labs normal potassium creatinine up at 1.4 compared to previous. He was given 500 cc bolus of fluids, heart rate improved to the 80s. Potassium magnesium normal, TSH screening was elevated at 8, free T4 levels obtained which was normal. Patient admitted to decreased oral intake, encourage continuing oral fluid intake. On the monitor he had occasional PVCs, discussed this is likely what he is feeling. Discussed the new right bundle branch findings that is not likely causing his symptoms however will need further testing as an outpatient. Vitals are stable. PCP did return the call in the emergency department when I reevaluated, will page his PCP to discuss the findings for further testing as an outpatient. I spoke with Dr. Marie updated and will follow-up as an outpatient. ED Disposition - Plan for ED Patient: Disposition: Home or Assisted Living Diagnosis: Right bundle branch block (RBBB) determined by electrocardiography, PVCs (premature ventricular contractions), OMARI (acute kidney injury) Instructions: Premature Ventricular Contractions, ED Renal Insufficiency Referrals: Hao Marie MD [Primary Care Provider] - 3-5 Days Additional Instructions: Creatinine 1.4 today. Continue oral fluids at home. Recheck blood work by your doctor. New right bundle branch block found on EKG, will likely need echocardiogram as an outpatient. Occasional PVCs noted on the monitor likely what you are feeling with your pulse. Possible Holter monitor as an outpatient.
[2020-06-12 16:05] VITALS: BP 160/84; PULSE 83; RESP 16; O2SAT 98
== END 2020-06-12 16:08 | disposition home or self-care (01) ==
PROVIDERS: Emergency Provider Emergency Medicine; PCP Internal Medicine
DX: I45.10 Unspecified right bundle-branch block (principal); I49.3 Ventricular premature depolarization; N17.9 Acute kidney failure, unspecified; I10 Essential (primary) hypertension; Z79.899 Other long term (current) drug therapy
CPT/HCPCS: 80048; 83735; 84439; 84443; 85025; 93005; 99284; J7040